=== PATIENT | female | born 1955 ===

== ENCOUNTER 2018-07-03 14:30 | Emergency (ER) | payer OTHER ==
[2018-07-03 14:36] VITALS: BP 118/69; PULSE 95; RESP 16; TEMP 98.2; O2SAT 99
--- NOTE | 2018-07-03 15:18 | ED PDOC ---
Lower Extremity Pain/Injury Time Seen by Provider: 07/03/18 15:15 Chief Complaint (Nursing): Lower Extremity Problem/Injury Chief Complaint (Provider): Right Knee Pain and Swelling History Per: Patient History/Exam Limitations: no limitations Onset/Duration Of Symptoms: Days (x4), Worse Since (x1 day) Current Symptoms Are (Timing): Still Present Additional Complaint(s): 63 year old female presents to the ED with her niece for evaluation of right knee pain and swelling for the past four days, worsening last night. As per the niece, patient sees her PMD for her knee pain who prescribed Naproxen, but since the pain increased, they came to the ED. Otherwise, denies falls, twists, and trauma to the knee. Patient is able to ambulate in ED. PMD: Dr. Javier Past Medical History Reviewed: Historical Data, Nursing Documentation, Vital Signs Vital Signs: Last Vital Signs Temp 98.2 F 07/03/18 14:33 Pulse 95 H 07/03/18 14:33 Resp 16 07/03/18 14:33 BP 118/69 07/03/18 14:33 Pulse Ox 99 07/03/18 14:33 - Medical History PMH: No Chronic Diseases - Surgical History Surgical History: No Surg Hx - Family History Family History: States: Unknown Family Hx - Social History Current smoker - smoking cessation education provided: No Alcohol: None Drugs: Denies - Home Medications Home Medications: Ambulatory Orders Medication Instructions Recorded Diclofenac Potassium 50 mg PO BID #20 tablet 07/03/18 Methylprednisolone [Medrol Dose 4 mg PO ASDIR #21 mg 07/03/18 Pack (21 tabs)] - Allergies Allergies/Adverse Reactions: Allergies Allergy/AdvReac Type Severity Reaction Status Date / Time No Known Allergies Allergy Verified 07/03/18 14:33 Wells Criteria for PE - Wells Criteria for Pulmonary Embolism Clinical Signs and Symptoms of DVT: No P.E is #1 Diagnosis, or Equally Likely: No Heart Rate >100: No Immobilization at least 3 days;Surgery previous 4 weeks: No Previous, objectively diagnosed PE or DVT: No Hemoptysis: No Malignancy w/treatment within 6 months, or palliative: No Total Score: 0 Review of Systems ROS Statement: Except As Marked, All Systems Reviewed And Found Negative Musculoskeletal: Positive for: Other (rigt knee pain and swelling) Physical Exam - Reviewed Nursing Documentation Reviewed: Yes Vital Signs Reviewed: Yes - Physical Exam Appears: Positive for: No Acute Distress Skin: Positive for: Normal Color, Warm Cardiovascular/Chest: Positive for: Regular Rate, Rhythm Respiratory: Positive for: Normal Breath Sounds. Negative for: Respiratory Distress Extremity: Positive for: Tenderness (over right lateral femoral apental tibial plateau), Swelling (effusion over right knee). Negative for: Normal ROM (limited to 30 degrees in the right leg) Neurologic/Psych: Positive for: Alert, Oriented (x3) - ECG O2 Sat by Pulse Oximetry: 99 (RA) Pulse Ox Interpretation: Normal Medical Decision Making Medical Decision Making: Time: 1318 Initial Impression: right knee pain and swelling, most likely arthritis Initial Plan: --XR right knee --Decadron 10mg IM --Toradol 30mg IM 1547 XR FINDINGS: BONES: There is periarticular bone demineralization. No acute displaced fracture or bone destruction. Bone alignment is normal. JOINTS: There is severe tricompartmental degenerative osteoarthrosis with reduced joint spaces, marginal osteophytes, chondrocalcinosis and tibial spiking, worse in the medial compartment. JOINT EFFUSION: There is a large suprapatellar joint effusion. OTHER FINDINGS: None. IMPRESSION: Severe tricompartmental degenerative osteoarthrosis, worse in the medial compartment. Large suprapatellar joint effusion. Scribe Attestation: Documented by Haley Fajardo, acting as a scribe for Jaron Glover PA-C. Provider Scribe Attestation: All medical record entries made by the Scribe were at my direction and personally dictated by me. I have reviewed the chart and agree that the record accurately reflects my personal performance of the history, physical exam, medical decision making, and the department course for this patient. I have also personally directed, reviewed, and agree with the discharge instructions and disposition. Disposition - Clinical Impression Clinical Impression: Tricompartment osteoarthritis of right knee - Patient ED Disposition Is Patient to be Admitted: No Doctor Will See Patient In The: Office Counseled Patient/Family Regarding: Studies Performed, Diagnosis, Need For Followup, Rx Given - Disposition Referrals: Nicholas Luque MD [Medical Doctor] - Nicholas Luque MD [Medical Doctor] - Candido León MD [Medical Doctor] - Disposition: Routine/Home Disposition Time: 16:17 Condition: STABLE Additional Instructions: Follow up with an orthopedic referral as provided herein You may take over the counter tylenol (650mg three to four times a day) with the above medications as well Prescriptions: Diclofenac Potassium 50 mg PO BID #20 tablet Methylprednisolone [Medrol Dose Pack (21 tabs)] 4 mg PO ASDIR #21 mg Instructions: Osteoarthritis, Osteoarthritis (DC) Forms: [facility] (Georgian)
--- NOTE | 2018-07-03 15:51 | RAD ---
Date of service: 07/03/2018 PROCEDURE: Right Knee Radiographs. HISTORY: r/o OA COMPARISON: None. FINDINGS: BONES: There is periarticular bone demineralization. No acute displaced fracture or bone destruction. Bone alignment is normal. JOINTS: There is severe tricompartmental degenerative osteoarthrosis with reduced joint spaces, marginal osteophytes, chondrocalcinosis and tibial spiking, worse in the medial compartment. JOINT EFFUSION: There is a large suprapatellar joint effusion. OTHER FINDINGS: None. IMPRESSION: Severe tricompartmental degenerative osteoarthrosis, worse in the medial compartment. Large suprapatellar joint effusion.
== END 2018-07-03 16:44 | disposition home or self-care (01) ==
LOC: H.ER 14:30
DX: M17.9 Osteoarthritis of knee, unspecified (principal)
CPT/HCPCS: 73562; 96372; 99283; J1100; J1885

== ENCOUNTER 2018-07-10 22:34 | Emergency (ER) | payer OTHER ==
[2018-07-10 22:45] VITALS: RESP 18; TEMP 98.1
--- NOTE | 2018-07-10 23:42 | ED PDOC ---
HPI: General Adult Time Seen by Provider: 07/10/18 23:19 Chief Complaint (Nursing): Chest Pain Chief Complaint (Provider): throat pain History Per: Patient History/Exam Limitations: no limitations Onset/Duration Of Symptoms: Days (5) Current Symptoms Are (Timing): Still Present Additional Complaint(s): 63 yo female no past medical history presents for evaluation of throat pain x 5 days. Patient states she feels like something is stuck in her throat; states she has pain with swallowing and will sometimes become nauseous and cough to the point where she vomits. Of note, patient was evaluated in ED last week for knee pain and prescribed diclofenac and prednisone; states symptoms started after. States she followed up with her primary doctor Dr. Martinez Javier and told him about her throat discomfort so he called in a prescription for Dexilant for her for possible acid reflux and scheduled for outpatient endoscopy. Patient states discomfort has worsened since then; now reports additional upper midsternal chest pain since yesterday. Denies fever, cough, shortness of breath, palpitations, abdominal pain, changes in bowel movements, urinary symptoms. Past Medical History Reviewed: Historical Data, Nursing Documentation, Vital Signs Vital Signs: Last Vital Signs Temp 98.1 F 07/10/18 22:45 Pulse 80 07/10/18 22:45 Resp 18 07/10/18 22:45 BP 130/83 07/10/18 22:45 Pulse Ox 98 07/10/18 22:45 - Medical History PMH: No Chronic Diseases - Surgical History Surgical History: Cholecystectomy, Hernia Repair - Family History Family History: States: Unknown Family Hx - Home Medications Home Medications: Ambulatory Orders Medication Instructions Recorded Diclofenac Potassium 50 mg PO BID #20 tablet 07/03/18 Methylprednisolone [Medrol Dose 4 mg PO ASDIR #21 mg 07/03/18 Pack (21 tabs)] Sucralfate [Carafate] 1 gm PO QID 7 Days dose 07/11/18 - Allergies Allergies/Adverse Reactions: Allergies Allergy/AdvReac Type Severity Reaction Status Date / Time No Known Allergies Allergy Verified 07/03/18 14:33 Review of Systems ROS Statement: Except As Marked, All Systems Reviewed And Found Negative ENT: Positive for: Throat Pain Cardiovascular: Positive for: Chest Pain Physical Exam - Reviewed Nursing Documentation Reviewed: Yes Vital Signs Reviewed: Yes - Physical Exam Appears: Positive for: Well, Non-toxic, No Acute Distress Head Exam: Positive for: ATRAUMATIC, NORMAL INSPECTION, NORMOCEPHALIC Skin: Positive for: Normal Color Eye Exam: Positive for: Normal appearance ENT: Positive for: Normal ENT Inspection Cardiovascular/Chest: Positive for: Regular Rate, Rhythm Respiratory: Positive for: Normal Breath Sounds Gastrointestinal/Abdominal: Positive for: Normal Exam, Bowel Sounds, Soft. Negative for: Tenderness Back: Positive for: Normal Inspection Extremity: Positive for: Normal ROM Neurologic/Psych: Positive for: Alert, Oriented (x3) - Laboratory Results Result Diagrams: 07/10/18 23:58 07/10/18 23:58 - ECG ECG: Positive for: Viewed By Me (reviewed by ED attending) ECG Rhythm: Positive for: Sinus Rhythm O2 Sat by Pulse Oximetry: 98 - Radiology X-Ray: Viewed By Me X-Ray Interpretation: No Acute Disease - Progress ED Course And Treament: -cbc -cmp -troponin -tsh -ekg -cxr -IV toradol -IV pepcid -bus driver/monitor ON re-eval, patient states pain slightly improved Viscous lidocaine ordered PAtient educated on findings (via Tristan Elisa psychology technician/certified byproducts pump operator), discharged with rx Carafate Advised to discontinue Medrol dose kwabena, and diclofenac until follow up with GI, as possible cause for esophagitis-related symptoms Follow up GI within 2-3 days Return precautions given Disposition - Clinical Impression Clinical Impression: Pain in throat and chest - Patient ED Disposition Is Patient to be Admitted: No Counseled Patient/Family Regarding: Studies Performed, Diagnosis, Need For Followup, Rx Given - Disposition Disposition: Routine/Home Disposition Time: 01:24 Condition: IMPROVED Prescriptions: Sucralfate [Carafate] 1 gm PO QID 7 Days dose Instructions: Chest Pain That Is Not Caused by the Heart (DC) Print Language: TAMAZIGHT
[2018-07-11] LABS: BASO # 0.1 K/uL (0.0-0.2); BASO % 0.8 % (0.0-2.0); EOS # 0.1 K/uL (0.0-0.7); EOS % 1.7 % (0.0-4.0); HEMOGLOBIN 13.3 g/dL (12.0-16.0); LYMPH # 2.5 K/uL (1.0-4.3); LYMPH % 32.2 % (20.0-40.0); MEAN CELL VOLUME 95.6 fl (81.0-99.0); MEAN CORPUSCULAR HEMOGLOBIN 31.9 pg (27.0-31.0); MEAN CORPUSCULAR HGB CONC 33.3 g/dL (33.0-37.0); MEAN PLATELET VOLUME 7.8 fl (7.2-11.7); MONO # 0.8 K/uL (0.0-0.8); MONO % 10.4 % (0.0-10.0); NEUT # 4.2 K/uL (1.8-7.0); NEUT % 54.9 % (50.0-75.0); NRBC % 0.1 % (0.0-0.0); RBC 4.18 Mil/uL (3.80-5.20); RED CELL DISTRIBUTION WIDTH 13.3 % (11.5-14.5); WHITE BLOOD COUNT 7.7 K/uL (4.8-10.8)
[2018-07-11 00:10] LABS: ALB/GLOB RATIO 1.3 (1.0-2.1); ALBUMIN 4.3 g/dL (3.5-5.0); ALT/SGPT 30 U/L (9-52); AST/SGOT 22 U/L (14-36); BLOOD UREA NITROGEN 16 mg/dl (7-17); CALCIUM 9.5 mg/dL (8.4-10.2); GFR NON-AFRICAN AMERICAN > 60
[2018-07-11 02:08] VITALS: BP 110/70; PULSE 73; O2SAT 100
--- NOTE | 2018-07-11 09:07 | CARD ---
APPROVED REPORT Date of service: 07/10/2018 EKG Measurement Heart [id number] <Conclusion> Normal sinus rhythm Normal ECG
--- NOTE | 2018-07-11 14:18 | RAD ---
Date of service: 07/10/2018 HISTORY: Chest pain. COMPARISON: No prior. TECHNIQUE: Chest PA and lateral FINDINGS: LUNGS: No active pulmonary disease. PLEURA: No significant pleural effusion identified. No pneumothorax apparent. CARDIOVASCULAR: No aortic atherosclerotic calcification present. No radiographic findings to suggest acute or significant cardiovascular disease. No pulmonary vascular congestion. OSSEOUS STRUCTURES: No significant abnormalities. VISUALIZED UPPER ABDOMEN: Normal. OTHER FINDINGS: None. IMPRESSION: No active disease.
== END 2018-07-11 01:30 | disposition home or self-care (01) ==
LOC: H.ER 22:34
DX: R07.89 Other chest pain (principal); J02.9 Acute pharyngitis, unspecified
CPT/HCPCS: 71046; 80053; 84443; 84484; 85025; 93005; 96374; 99284; J1885